=== PATIENT | female | born 1955 | race Caucasian/White ===

== ENCOUNTER 2025-07-06 14:22 | Emergency (ER) | payer MEDICARE, SELFPAY ==
--- OUTSIDE RECORDS SUMMARY | 2025-07-06 14:33 | XMS_ITS | Clinical Summary ---
Author Organization [facility] [employer] [facility] tem Address [id number] [address] [place] [address] Care Team Providers Care Carpet Cleaning Technician Name Role Phone Gael Bautista MD Primary Care Provider [phone] Allergies No known active allergies Medications MedicationSigDispense QuantityRefillsLast FilledStart DateEnd DateStatus furosemide (LASIX) 20 mg tablet TAKE 1 TABLET BY MOUTH DAILY 90 tablet 5Active lisinopriL (PRINIVIL,ZESTRIL) 10 mg tablet TAKE 1 TABLET BY MOUTH IN THE MORNING 90 tablet 5Active atorvastatin (LIPITOR) 40 mg tablet Indications:HypercholesterolemiaTake 1 tablet (40 mg total) by mouth in the morning. 90 tablet 5Active Active Problems ProblemNoted DateDiagnosed DateObesity, hcxfqv3612/16/2022Hypercholesteremia 11/19/2020Hypertension Encounters DateTypeDepartmentCare BibnEkwrxqjokxz58/26/2025 2:21 PM EST - 06/07/2025 11:59 PM ESTHospital Encounter [facility] [address] [place] [phone] Gael Bautista MD Encounter for screening mammogram for malignant neoplasm of breast Discharge Disposition: Home06/07/20253758Vfxebd38/03/2025Telephone [facility] Internal Medicine/Pediatrics [address] [place] [phone] Haylee Moy RMA from Last 3 Months Immunizations ImmunizationAdministration DatesNext DueInfluenza, Injectable, quadrivalent (PF) 04/19/2018 Family History Medical HistoryRelationNameCommentsAlcohol abuseFatherCirrhosisFatherCervical cancerMotherHypertensionMotherBreast cancerNeg HxRelationNameStatusComments FatherDeceasedMotherDeceased Social History Tobacco UseTypesPacks/DayYears UsedDateSmoking Tobacco: NeverSmokeless Tobacco: Never Tobacco Cessation:Counseling Given: No Alcohol UseStandard Drinks/WeekCommentsNever0 (1 standard drink = 0.6 oz pure alcohol)PHQ-2AnswerDate RecordedTotal Eacae2595ChildcareAnswerDate LuvfxyacXzmoxfpztZnrokiy66/12/2019EmploymentAnswerDate RecordedEmploymentUnknown 12/22/2018Hunger ScreeningAnswerDate RecordedWithin the past 12 months we worried whether our food would run out before we got money to buy more.Never True01/27/2025Within the past 12 months the food we bought just didn't last and we didn't have money to get more.Never True01/27/2025Purpose - LifeAnswerDate RecordedPurpose and direction in puqyWygxtag67/11/2021CommentsNoSex and Gender InformationValueDate RecordedSex Assigned at BirthNot on fileLegal Sex Dobysh3302/15/2015 11:28 AM EDTGender IdentityNot on fileSexual OrientationNot on file Last Filed Vital Signs Vital SignReadingTime TakenCommentsBlood Lhruwikz889/6807 3:01 PM EDT Okozl074401/27/2025 3:01 PM FHQYfusyxdfvti74.4 ??C (97.6 ??F)03/04/2023 7:20 AM EDTRespiratory Uflq333903/04/2023 9:30 AM EDTOxygen Pgwipkpgou64%03/04/2023 9:30 AM EDTInhaled Oxygen Concentration--Dnkirb22.6 kg (217 lb 6.4 oz)01/27/2025 3:01 PM OUPKlcypf582 cm (5' 3 )01/27/2025 3:01 PM EDTBody Mass Index38.51001/27/2025 3:01 PM EDT Plan of Treatment Health MaintenanceDue DateLast DoneCommentsAdult BMI Follow Up Plan1973 DTaP,Tdap and Td Vaccines (1 - Tdap)1974Zoster (Shingles) Vaccine (1 of 2) 2005COVID-19 Vaccine (3 - season)504/, 10/12/2020 Influenza Cltnnbd59Adult BMI Qglrsbfgq82 Depression Whsauhuzd86Fall Risk Cwocethfk65 Medicare Annual Wellness Visit, 01/19/2024, 12/16/2022, Additional history existsTobacco Mszstavil09Mammogram , 05/26/2024, 12/25/2022, Additional history existsRSV ( or age 60+ yrs) (1 - 1-dose 75+ series)05/11/20300734Lhqrfshxdab86/23/2033 03/04/2023, 03/04/2023 Medical Devices Not on file Procedures Procedure NamePriorityDate/TimeAssociated DiagnosisCommentsMAMM SCREENING BILATERAL W AEFRnvnspg70/26/2025 2:34 PM EST Encounter for screening mammogram for malignant neoplasm of breast PROVATION LWXCECPOWKFAyttobh98/23/2023 8:05 AM EDT from Last 3 Months or Most Recently Relevant to Health Maintenance Results * Mammography screening bilateral with CAD (06/07/2025 2:34 PM EST)Anatomical RegionLateralityModalityBreastBilateralMammographySpecimen (Source)Anatomical Location / LateralityCollection Method / VolumeCollection TimeReceived Time 06/12/2025 9:51 AM EST Narrative 06/12/2025 9:56 AM EST NEVA CAVANAUGH 1955 [id number] EXAM: MAMM SCREENING BILATERAL W CAD, 06/07/2025 2:21 PM CLINICAL INDICATIONS: Screening, Encounter for screening mammogram for malignant neoplasm of breast COMPARISON: 05/26/2024 and multiple additional prior mammograms TECHNIQUE: Bilateral digital tomosynthesis MLO and CC views of the breasts were obtained, with creation of synthetic 2D views. Computer aided detection was utilized. FINDINGS: There are scattered areas of fibroglandular density. There are no suspicious masses, calcifications, or areas of architectural distortion. IMPRESSION: No mammographic evidence of malignancy. BI-RADS: BI-RADS 1 - Negative RECOMMENDATION: ??Routine screening mammogram in 1 year. RISK ASSESSMENT: TC Lifetime risk: 5%. The patient's reported personal and family medical history was used calculate their Tyrer-Cuzick lifetime risk of malignancy. Scores less than 20% are not considered high risk per ACR guidelines and patient should continue with the above recommendation. Finalized by Lily Cutler MD on 06/12/2025 9:56 AM 1 b MAMM 1 YR FDA Accredited Performing Facility: [facility] - [facility]amm[facility] [address] [address] Procedure Note Lily Cutler MD - 06/12/2025 NEVA CAVANAUGH 1955 [id number] EXAM: MAMM SCREENING BILATERAL W CAD, 06/07/2025 2:21 PM CLINICAL INDICATIONS: Screening, Encounter for screening mammogram formalignant neoplasm of breast COMPARISON: 05/26/2024 and multiple additional prior mammograms TECHNIQUE: Bilateral digital tomosynthesis MLO and CC views of the breastswere obtained, with creation of synthetic 2D views. Computer aideddetection was utilized. FINDINGS: There are scattered areas of fibroglandular density. There are no suspicious masses, calcifications, or areas of architectural distortion. IMPRESSION: No mammographic evidence of malignancy. BI-RADS: BI-RADS 1 - Negative RECOMMENDATION: Routine screening mammogram in 1 year. RISK ASSESSMENT: TC Lifetime risk: 5%. The patient's reported personal and family medical history was usedcalculate their Tyrer-Cuzick lifetime risk of malignancy. Scores less than20% are not considered high risk per ACR guidelines and patient shouldcontinue with the above recommendation. Finalized by Lily Cutler MD on 06/12/2025 9:56 AM 1 b MAMM 1 YR FDA Accredited Performing Facility: [facility] [address] [facility] [address] Authorizing ProviderResult TypeResult StatusGael BOB MAMMOGRAPHY ORDERABLESFinal Result * Colonoscopy Report (03/04/2023 8:05 AM EDT)Specimen (Source)Anatomical Location / LateralityCollection Method / VolumeCollection TimeReceived Time Narrative SYSTEMGENERATED, DOCUMENTATION - 03/04/2023 8:05 AM EDT This order has been auto-finalized for image and report archival in PACs. *For full report details, please reach out to your physician. ??This image is visible to you in MyChart.* Authorizing ProviderResult TypeResult StatusKala Riley MDIMG OR IMG ORDERABLESFinal Result from Last 3 Months or Most Recently Relevant to Health Maintenance Insurance Care Teams Team MemberRelationshipSpecialtyStart DateEnd Date Gael Bautista MD [address] [place] [address], [address] [place], [place] [id number] PCP - SbjxhpkEkogojzmii28/5/19
[2025-07-06 15:00] VITALS: BP 181/67; PULSE 76; TEMP 36.7; O2SAT 98; BMI 35.4
--- NOTE | 2025-07-06 15:09 | CT_ITS ---
The [address] [address] Patient Name: RUPALI CAVANAUGH MRN: [id number] date: 1955 Sex: F Assigned Patient Location: ER Current Patient Location: Accession/Order Number: [id number] Exam Date: 07/06/2025 15:35 Report Date: 07/06/2025 16:46 At the request of: ZURDO DE LEÓN DO Procedure: CT head/brain wo con Unenhanced head CT TECHNIQUE: Contiguous axial imaging of the head. The CT exam was performed using one or more the following dose reduction techniques: Automated exposure control, adjustment of the MA and/or Kv according to patient size, or use of the iterative reconstruction technique. COMPARISON: None HISTORY: Transient amnesia VENTRICLES: Within normal limits ATROPHY: None BRAIN PARENCHYMA: Adequate franco-white matter differentiation identified. HEMORRHAGE: None HERNIATION: No mass effect or herniation INFARCTION: No recent vascular distribution infarction is seen. EXTRA-AXIAL FLUID COLLECTIONS None MIDBRAIN: Unremarkable NATHALIA: Unremarkable MEDULLA: Unremarkable SINUSES: Soft tissue opacification of the right maxillary sinus extending into the right nasal passageway in the right ethmoid air cells. ORBITS: Grossly unremarkable MASTOIDS: Unremarkable BONY STRUCTURES Intact ADDITIONAL FINDINGS: CT/CT head/brain wo con IMPRESSION: No acute findings. Impression dictated by: Primo Diaz M.D. 07/06/2025 4:46 PM Dictation Location: [place] [address] Electronically authenticated by: [id number] Y Date: 07/06/2025 16:46
[2025-07-06 15:27] LABS: Hematocrit 41.6 % (36.0-48.0); Hemoglobin 13.9 g/dL (12.0-16.0); Immature Granulocytes Abs Auto 0.01 10^3/uL (0.00-0.03); Immature Granulocytes Pct Auto 0.2 % (0.0-0.5); Lymphocytes Absolute Auto 1.4 10^3/uL (1.2-3.8); Mean Corpuscular HGB Conc 33.4 g/dL (29.9-35.2); Mean Corpuscular Hemoglobin 29.8 pg (26.7-34.0); Mean Corpuscular Volume 89.3 fL (81.0-99.0); Platelet Count 319 10^3/uL (150-450); Red Blood Count 4.66 10^6/uL (4.20-5.40); White Blood Count 6.4 10^3/uL (4.0-11.0)
--- NOTE | 2025-07-06 15:28 | PC.NURSE ---
pt had a brief episode about 3 hrs ago where she felt out of it & forgot it was marizol. sx now resolved. pt did also mention her R eye is fuzzy
[2025-07-06 15:41] LABS: Alanine Aminotransferase 27 U/L (14-59); Albumin Globulin Ratio 0.9; Albumin Level 3.8 g/dL (3.4-5.0); Alkaline Phosphatase 109 U/L (46-116); Anion Gap 10.3; Aspartate Amino Transferase 23 U/L (15-37); Blood Urea Nitrogen 11.0 mg/dL (7.0-18.0); Calcium 8.9 mg/dL (8.5-10.1); Carbon Dioxide 30.7 mmol/L (21.0-32.0); Chloride 103 mmol/L (98-107); Estimated GFR (African America >60 (>=60 mL/min/1.73m^2); Estimated GFR (Non-African Ame >60 (>=60 mL/min/1.73m^2); Globulin 4.2 g/dL; Glucose 102 mg/dL (74-106); Potassium 4.0 mmol/L (3.5-5.1); Sodium 140 mmol/L (136-145); Total Protein 8.0 g/dL (6.4-8.2)
[2025-07-06 16:10] LABS: Glucose Urine UA NEGATIVE (NEGATIVE)
[2025-07-06 16:26] LABS: Cast Seen? NONE SEEN #/LPF (NONE SEEN); Crystals Seen? None Seen #/HPF (None Seen)
[2025-07-06 16:27] LABS: Urine Culture Indicated NO
[2025-07-06 16:38] VITALS: BP 138/70
--- NOTE | 2025-07-06 17:47 | ED.GENADUL1 ---
HPI HPI - General Adult General Chief complaint: Neuro Symptoms/Deficit Stated complaint: CONFUSION Time Seen by Provider: 07/06/25 14:29 Source: patient Mode of arrival: walk-in Limitations: no limitations History of Present Illness HPI narrative: Patient is a 70-year-old female presenting to the emergency department with her daughter for concerns of an amnesic episode. Patient states that 3 hours prior to arrival her daughter asked the patient about Connie anh dinner last night. The patient seemed to be confused and could not recall that today was [place]. She had a hard time remembering the events of the night prior. However, currently in the ED, she can remember all of the events of yesterday and today. She seems to be back to her baseline and not confused or amnestic anymore. Patient denies history of prior CVA or TIA. She has no chronic medical conditions other than hypertension and hyperlipidemia. She denies headache, double vision, photophobia, numbness/tingling/weakness in the extremities, or any other neurologic complaints. She has no chest pain or shortness of breath. No abdominal pain, nausea, or vomiting. She denies alcohol or drug use. Related Data Home Medications ?Medication ?Instructions ?Recorded ?Confirmed atorvastatin 40 mg tablet 40 mg PO DAILY 07/06/25 07/06/25 furosemide 20 mg tablet 20 mg PO DAILY 07/06/25 07/06/25 lisinopril 10 mg tablet 10 mg PO DAILY 07/06/25 07/06/25 Allergies Allergy/AdvReac Type Severity Reaction Status Date / Time No Known Drug Allergies Allergy Verified 07/06/25 15:00 Review of Systems ROS Status of ROS 10 or more systems reviewed and unremarkable except as noted in history and below PFSH PFSH Social History Little interest or pleasure in doing things: not at all Feeling down, depressed, or hopeless: not at all Exam Narrative Exam Narrative: CONSTITUTIONAL: Well-appearing, answering questions and following commands appropriately SKIN: Was warm and dry. EYES: Sclerae white. EARS, NOSE, THROAT: Moist oral mucosa. RESPIRATORY: Clear to auscultation bilaterally, no wheezes, crackles, or stridor, no use of accessory muscles CARDIOVASCULAR: Normal rate and regular rhythm. There is no S3, S4, murmur, rub. GASTROINTESTINAL: Abdomen is nondistended. MUSCULOSKELETAL: No peripheral edema. NEUROLOGIC: Patient is alert and oriented to person place and time with normal speech. Memory is normal and thought process is intact. Sensation: sensation to light touch is intact bilaterally in upper and lower extremities. Motor: Good muscle tone. Strength is 5/5 bilaterally in the upper and lower extremities. Cerebellar: Finger to nose intact. Patient has a normal gait without ataxia. Cranial Nerves: Pupils are round, reactive to light and accommodation. Extraocular movements are intact without ptosis. No nystagmus. Facial sensation intact bilaterally to light touch in the V1, V2, V3 distribution. Facial muscle strength is normal and equal bilaterally. Hearing is normal bilaterally. Palate and uvula elevate symmetrically. Shoulder shrug strong and equal bilaterally. Tongue protrudes midline and moves symmetrically. Constitutional Vital Signs, click to edit/add: Last Vital Signs Temp 98.0 F 07/06/25 15:00 Pulse 76 07/06/25 15:00 Resp 18 07/06/25 15:00 BP 138/70 07/06/25 16:38 Pulse Ox 98 07/06/25 15:00 Course Vital Signs Vital signs: Vital Signs Temperature 98.0 F 07/06/25 15:00 Pulse Rate 76 07/06/25 15:00 Respiratory Rate 18 07/06/25 15:00 Blood Pressure 181/67 H 07/06/25 15:00 Pulse Oximetry 98 07/06/25 15:00 Temperature 98.0 F 07/06/25 15:00 Pulse Rate 76 07/06/25 15:00 Respiratory Rate 18 07/06/25 15:00 Blood Pressure 138/70 07/06/25 16:38 Pulse Oximetry 98 07/06/25 15:00 Medical Decision Making [facility] Narrative Medical decision making narrative: Patient is a 70-year-old female, history significant for hypertension hyperlipidemia, presenting to the emergency department for brief episode of retrograde amnesia which is now resolved. Her vital signs on arrival are within normal limits. She is afebrile and hemodynamically stable. Her symptoms now have completely resolved, able to recall all of the events of yesterday and today. She has no focal neurologic deficits on exam. She is otherwise asymptomatic and well-appearing. Differential diagnosis includes transient retrograde amnesia. Low concern for CVA/TIA as she had no other focal neurologic deficits during this time. I did obtain a CT head to rule out any intracranial process. Laboratory studies were obtained to rule out underlying electrolyte/metabolic derangement. CT head independently reviewed/interpreted by myself demonstrated no acute intracranial pathology or hemorrhage. Laboratory studies were unremarkable. No significant electrolyte or metabolic derangement. No evidence of acute kidney injury. No anemia, leukocytosis, or thrombocytopenia. No transaminitis or hyperbilirubinemia. I do believe the patient is stable for discharge. Patient's presentation is most likely consistent with transient amnesic event. They were instructed to follow up with her PCP for further care. Return precautions were given including any new or worsening symptoms, including any neurologic symptoms. Patient understands and agrees to the plan. FINAL IMPRESSION: #Acute transient retrograde amnesia, resolved DISPOSITION: Discharged home CONDITION: Good Lab Data Lab results reviewed: Yes I reviewed the patient's lab results Labs: Lab Results 07/06/25 07/06/25 Range/Units 15:22 16:00 WBC 6.4 (4.0-11.0) 10^3/uL RBC 4.66 (4.20-5.40) 10^6/uL Hgb 13.9 (12.0-16.0) g/dL Hct 41.6 (36.0-48.0) % MCV 89.3 (81.0-99.0) fL MCH 29.8 (26.7-34.0) pg MCHC 33.4 (29.9-35.2) g/dL RDW 12.5 (11.0-15.0) % Plt Count 319 (150-450) 10^3/uL MPV 8.4 L (9.5-13.5) fL Neut % (Auto) 66.8 (43.0-75.0) % Lymph % (Auto) 21.5 (20.5-60.0) % [place] % (Auto) 7.8 (1.7-12.0) % Eos % (Auto) 2.8 (0.9-7.0) % Baso % (Auto) 0.9 (0.2-2.0) % Neut # (Auto) 4.3 (1.4-6.5) 10^3/uL Lymph # (Auto) 1.4 (1.2-3.8) 10^3/uL [place] # (Auto) 0.5 (0.3-0.8) 10^3/uL Eos # (Auto) 0.2 (0.0-0.7) 10^3/uL Baso # (Auto) 0.1 (0.0-0.1) 10^3/uL Abs Immat Gran (auto) 0.01 (0.00-0.03) 10^3/uL Imm/Tot Granulo (auto) 0.2 (0.0-0.5) % Sodium 140 (136-145) mmol/L Potassium 4.0 (3.5-5.1) mmol/L Chloride 103 (98-107) mmol/L Carbon Dioxide 30.7 (21.0-32.0) mmol/L Anion Gap 10.3 BUN 11.0 (7.0-18.0) mg/dL Creatinine 0.85 (0.55-1.02) mg/dL Est GFR ( Amer) >60 (>=60 mL/min/1.73m^2) Est GFR (Non-Af Amer) >60 (>=60 mL/min/1.73m^2) BUN/Creatinine Ratio 12.9 Glucose 102 (74-106) mg/dL Calcium 8.9 (8.5-10.1) mg/dL Total Bilirubin 0.3 (0.2-1.0) mg/dL AST 23 (15-37) U/L ALT 27 (14-59) U/L Alkaline Phosphatase 109 (46-116) U/L Total Protein 8.0 (6.4-8.2) g/dL Albumin 3.8 (3.4-5.0) g/dL Globulin 4.2 g/dL Albumin/Globulin Ratio 0.9 Urine Color Lt. yellow (YELLOW) Urine Clarity Clear (CLEAR) Urine pH 6.0 (5.0-9.0) Ur Specific [place] <=1.005 A (1.005-1.025) Urine Protein Negative (NEG/TRACE) mg/dL Urine Glucose (UA) Negative (NEGATIVE) mg/dL Urine Ketones Negative (NEGATIVE) mg/dL Urine Occult Blood Trace-i (NEGATIVE) Urine Nitrite Negative (NEGATIVE) Urine Bilirubin Negative (NEGATIVE) Urine Urobilinogen 0.2 (0.2-1.0) EU/dL Ur Leukocyte Esterase Trace A (NEGATIVE) Urine RBC 0-2 (0-2) #/HPF Urine WBC 0-2 A (NONE SEEN) #/HPF Ur Squamous Epith Cells Rare (NONE/RARE) #/LPF Urine Crystals None seen (None Seen) #/HPF Urine Bacteria Trace A (NONE SEEN) #/HPF Urine Casts None seen (NONE SEEN) #/LPF Urine Mucus None seen (NONE SEEN) Ur Culture Indicated? No Imaging Data CT scan - head: Attestation: I personally reviewed and interpreted this imaging study as follows: Radiologist's impression: ITS Impressions Head CT 07/06/25 15:09 IMPRESSION: No acute findings. Impression dictated by: Primo Diaz M.D. 07/06/2025 4:46 PM Dictation Location: School Admissions Electronically authenticated by: [id number] Y Date: 07/06/2025 16:46 Discharge Plan Discharge Chief Complaint: Neuro Symptoms/Deficit Clinical Impression: Amnesia (retrograde) Patient Disposition: Home, Self-Care Time of Disposition Decision: 16:24 Condition: Good Mode of Transportation: Private Vehicle Prescriptions / Home Meds: No Action atorvastatin 40 mg tablet 40 mg PO DAILY furosemide 20 mg tablet 20 mg PO DAILY lisinopril 10 mg tablet 10 mg PO DAILY Print Language: Jordanian Instructions: Acute Delirium (ED) Referrals: LINETTE TORRES [Primary Care Provider, Family Practice] - 1 week Discharge Date/Time: 07/06/25 16:40
== END 2025-07-06 16:40 | disposition home or self-care (01) ==
PROVIDERS: Emergency Provider Student in an Organized Health Care Education/Training Program; Family Provider Internal Medicine; PCP Internal Medicine
DX: R41.2 Retrograde amnesia (principal)
CPT/HCPCS: 36415; 70450; 80053; 81001; 85025; 99284